=== PATIENT | male | born 1985 | race Caucasian/White ===

== ENCOUNTER 2024-06-22 03:09 | Emergency (ER) | payer BC, SELFPAY ==
[2024-06-22 03:15] VITALS: BP 150/87; PULSE 105
[2024-06-22 03:16] VITALS: BMI 27.9
--- NOTE | 2024-06-22 03:31 | ED.EPISTAXIS ---
History of Present Illness General Chief Complaint: Epistaxis Stated Complaint: NOSE BLEED Time Seen by Provider: 06/22/24 03:20 Source: patient Mode of arrival: ambulatory Limitations: no limitations History of Present Illness HPI Narrative: Patient with no significant past history does drink alcohol almost every day comes here for acute onset of right epistaxis started just prior to arrival patient did have cold symptoms for last few days no bleeding from any other place Related Data Allergies Allergy/AdvReac Type Severity Reaction Status Date / Time No Known Allergies Allergy Verified 06/22/24 03:20 Review of Systems Review of Systems: Yes all other systems are reviewed and are negative [facility] Social History Social History Advance Directives: No Do you have a plan to hurt others: No Plan Physical Exam Vital Signs: Vital Signs: Last Vital Signs Temp 97.6 F 06/22/24 03:45 Pulse 64 06/22/24 03:45 Resp 16 06/22/24 03:45 BP 145/70 H 06/22/24 03:45 Pulse Ox 99 06/22/24 03:45 O2 Del Method Room Air 06/22/24 03:45 BMI result Body Mass Index 27.9 Appearance: Alert. Oriented X3. No acute distress. ENT: Pharynx normal. Oral Mucosa moist no active bleeding at this time inflamed turbinates erythema at the right anterior septum Neck: Normal inspection. Neck supple. CVS: Normal heart rate and rhythm. Pulses normal. Respiratory: No respiratory distress. Equal air entry bilateral, no wheezing/rales/rhonchi Skin: Skin warm and dry. Normal skin color. Normal skin turgor. Extremities: No lower extremity edema. Neuro: Oriented X 3. Medications Administered Discontinued Medications Generic Name Dose Route Start Last Admin Trade Name Freq PRN Reason Stop Dose Admin Silver Nitrate 1 appl 06/22/24 03:32 06/22/24 04:06 Silver Nitrate Applicator Stick..Ea. TOPICAL 06/22/24 03:33 1 appl ONCE ONE Administration Medical Decision Making Medical Decision Making [facility] Narrative: Patient is status post minor epistaxis-source of bleeding of noticed and silver nitrate was applied bleeding stopped Procedures Epistaxis Control Nostril: Yes right Direct inspection: Yes anterior source identified Direct inspection method: Yes otoscope Epistaxis treatment: Yes silver nitrate cautery Results of treatment: Yes bleeding controlled Complications: Yes none Discharge Plan Discharge Clinical Impression: Epistaxis Patient Disposition: Home, Self-Care Instructions: Nosebleed (ED) Additional Instructions: Local care as advised Follow with your PCP Interventions: ED Discharge Assessment Last Done: 06/22/24 03:45 Discharge Date/Time: 06/22/24 04:07 Print Language: Scottish
[2024-06-22 03:45] VITALS: BP 145/70; PULSE 64; RESP 16; TEMP 36.4; O2SAT 99
[2024-06-22] MEDS: Silver Nitrate Applicator STICK..EA. 1 APPL TOPICAL (04:06)
== END 2024-06-22 04:07 | disposition home or self-care (01) ==
PROVIDERS: Emergency Provider Internal Medicine
DX: R04.0 Epistaxis (principal)
CPT/HCPCS: 30901; 99282; 99284

== ENCOUNTER 2025-07-11 13:10 | Outpatient (REF) | payer BC, SELFPAY ==
[2025-07-11 15:50] LABS: Resp Syncy Virus RNA Qual PCR NEGATIVE (Negative); SARS COV2 PCR INHOUSE NEGATIVE (Negative)
== END 2025-07-11 13:11 | disposition home or self-care (01) ==
LOC: HO.LNP 13:10
PROVIDERS: Visit Provider Physician Assistant
DX: J06.9 Acute upper respiratory infection, unspecified (principal); R50.9 Fever, unspecified; B34.9 Viral infection, unspecified
CPT/HCPCS: 87637; 87880

== ENCOUNTER 2025-07-11 13:10 | Outpatient (AMB) | payer BC, SELFPAY ==
[2025-07-11 13:18] VITALS: BP 128/70; PULSE 117; RESP 16; TEMP 38.3; O2SAT 98; BMI 35.2
--- NOTE | 2025-07-11 13:18 | AM.OFFWIN_ITS ---
Intake Vital Signs 07/11/25 13:18 Height 5 ft 10 in Weight 111.13 kg BMI 35.2 BP 128/70 Blood Pressure Location Rt brachial Position Sitting Respiration 16 Pulse 117 H Pulse Source Pulse Oximeter Temp 101.0 F H Temp Source Oral Pulse Oximetry (%) 98 Oxygen Delivery Method Room Air Intake Visit Reasons: EP Flu symptoms, body aches, fever Intake Note: Pt is here today c/o fever, bodyaches fatigue [id number] Allergies No Known Allergies Allergy (Verified 07/11/25 13:25) HPI HPI Comments History of Present Illness Details Chief Complaint: ?I?m on day three of a fever that I can?t shake.? History of Present Illness: ? Adult male (exact age not provided) presents on day 3 of persistent fever. ? Home temperatures reported as high as 102 ?F (noted 102.4 ?F earlier today); most recent home temperature ~100 ?F prior to arrival. ? Last antipyretic taken at 02:00 AM (ibuprofen). Prefers to alternate ibuprofen q6 h with acetaminophen q4 h only when fever >102 ?F; otherwise ?lets the fever do its job.? ? Denies sore throat or white tonsillar exudate. ? Household exposure: son recently completed antibiotics for an atypical presentation of streptococcal pharyngitis. ? Self-performed combined COVID/flu test earlier today?reported negative. ? Used mouthwash ~20 minutes prior to arrival and is concerned it may interfere with throat swab accuracy. ? No other known sick contacts. ? Received 650 mg acetaminophen PO in clinic for fever. NO CP,sob, nausea, vomiting diarreaha, headache, vision changes or dizziness Interventions/Medications given in clinic: ? Acetaminophen 650 mg PO administered for fever. Laboratory / [facility] Testing: ? Patient-reported combined COVID/Flu test earlier today ? negative. ? Ordered in clinic (results pending): ??? Influenza A/B, COVID-19, RSV multiplex nasal swab (?Blue COVID RSV?). ??? Rapid streptococcal antigen test / throat culture. Imaging: None performed or discussed. Assessment & Plan The patient presents with a 3-day febrile illness without focal bacterial symptoms. Exam notable for posterior pharyngeal erythema. No signs of abscess. No signs of meningitis. Differential includes viral upper respiratory infection versus streptococcal pharyngitis given recent household exposure. Problem #1 ? Febrile illness, rule out viral URI vs streptococcal pharyngitis Assessment: Persistent fever up to 102 ?F; posterior pharyngeal erythema; household exposure to strep; initial home COVID/flu negative. Plan: * Obtain flu/COVID/RSV multiplex nasal swab (sent). * Obtain rapid strep test with reflex throat culture (sent) due to son?s recent infection. * No empiric antibiotics at this time; will reconsider if strep test returns positive. * Antipyretic regimen: alternate ibuprofen q6 h with acetaminophen q4 h as needed; avoid allowing temperature to remain >100.4 ?F without treatment. Differential * Viral upper respiratory infection (most likely, given negative initial COVID/flu test and lack of focal bacterial symptoms) * Streptococcal pharyngitis (due to household exposure and posterior pharyngeal erythema) * Other bacterial pharyngitis (less likely, no exudate or severe sore throat) * Early mononucleosis (consider if symptoms persist, though no lymphadenopathy noted) * Influenza (pending test results) * COVID-19 (pending test results) * Other viral syndromes (e.g., adenovirus, enterovirus) * Non-infectious causes (e.g., drug fever, autoimmune, though less likely given acute presentation) Review of Systems Const All systems reviewed & are unremarkable except as noted in HPI and below Physical Exam Exam Exam: Appearance: Alert.? Oriented X3.? No acute distress.? Head: Normocephalic, atraumatic, no step-offs or deformities Eyes: Pupils equal, round and reactive to light.? ENT: Pharynx w/ mild eyrthema to posterior pharynx.??External ears jacob. No mastoid tenderness. Neck: Normal inspection.? Neck supple.?No meningeal signs CVS: Normal heart rate and rhythm.? Pulses normal.? Respiratory: No respiratory distress.? Breath sounds normal.? Abdomen: Soft and nontender.? Skin: Skin warm and dry.? Normal skin color.? Normal skin turgor.? Extremities: No lower extremity edema.? No calf ttp. 5/5 strength to bilateral upper and lower extremities Neuro: Oriented X 3.? No motor deficit.? No sensory deficit. CN 2-12 intact Vital Signs: Last Vital Signs Temp 101.0 F H 07/11/25 13:18 Pulse 117 H 07/11/25 13:18 Resp 16 07/11/25 13:18 BP 128/70 07/11/25 13:18 Pulse Ox 98 07/11/25 13:18 Oxygen Delivery Method Room Air 07/11/25 13:18 BMI result Body Mass Index 35.2 Fever repeat temp 102.4 --> tylenol given Tachycardia due to fever Assessment & Plan Assessment & Plan (1) Viral illness: Code(s): B34.9 - Viral infection, unspecified (2) Fever: Code(s): R50.9 - Fever, unspecified Plan Take your medications as prescribed. If you were prescribed antibiotics today, it is important that you take your medication to their entirety, do not skip any doses, do not finish them early. Follow-up with your primary care provider this week. Go to the emergency department with new or worsening symptoms. In case of emergency call 911 Orders: Orders AMB Acetaminophen Adult Dose Today J06.9 - Acute upper respiratory infection, unspecified SARS-CoV2/FLU/RSV Today J06.9 - Acute upper respiratory infection, unspecified Medications: New acetaminophen 650 mg (2 x 325 mg) PO ONCE 2 tabs 0RF fever J06.9 - Acute upper respiratory infection, unspecified Coding Level of Care Code New Pt Level 3 (60768) Diagnoses Viral illness B34.9 Fever R50.9
== END 2025-07-11 13:39 | disposition home or self-care (01) ==
PROVIDERS: Visit Provider Physician Assistant
DX: B34.9 Viral infection, unspecified (principal); R50.9 Fever, unspecified; Z13.9 Encounter for screening, unspecified